=== PATIENT | female | born 1950 | race Caucasian/White ===

== ENCOUNTER → 2017-09-22 | Outpatient (CLI) | payer OTHER ==
[~2017-09-22] VITALS: Ht 157.5 cm; Wt 76.0 kg
[2017-09-22 12:46] VITALS: BP 135/80; PULSE 76; Ht 157.5 cm; Wt 76.0 kg
== END | disposition home or self-care (01) ==
LOC: C.NEUR 11:20
PROVIDERS: ATTEND Internal Medicine Pulmonary Disease
DX: G47.33 Obstructive sleep apnea (adult) (pediatric) (principal); I10 Essential (primary) hypertension; E78.5 Hyperlipidemia, unspecified; K21.9 Gastro-esophageal reflux disease without esophagitis; F43.21 Adjustment disorder with depressed mood; Z88.2 Allergy status to sulfonamides